=== PATIENT | male | born 1990 | race Two or more races ===

== ENCOUNTER 2019-01-17 19:23 | Emergency (ER) | payer SELFPAY ==
[2019-01-17 20:10] VITALS: BP 136/86
== END 2019-01-17 20:59 ==
LOC: JD.ED 19:23
DX: Z53.21 Procedure and treatment not carried out due to patient leaving prior to being seen by health care provider (principal)

== ENCOUNTER 2019-09-11 12:10 | Emergency (ER) | payer SELFPAY ==
--- NOTE | 2019-09-11 13:31 | EDM.PDOC ---
ED HPI GENERAL MEDICAL PROBLEM - General Chief Complaint: Chest Pain Stated Complaint: CHEST PAIN Time Seen by Provider: 09/11/19 13:02 Source of Information: Reports: Patient, RN Notes Reviewed History Limitations: Reports: No Limitations - History of Present Illness INITIAL COMMENTS - FREE TEXT/NARRATIVE: Patient is a 28-year-old male who presents to the ED for the evaluation of chest pressure and shortness of breath. Patient states that this morning around 11 AM, he was walking downstairs, when he suddenly began to feel lightheaded and dizzy. Patient states that he did have 2 cups of coffee for breakfast, but did not eat any meal for breakfast. Patient states that this was for a short period of time, he states now that he just feels some chest pressure, and feels generalized nervousness. The patient notes that he did have contact with his [id number] 14 to 16 days ago, and he was positive for coronavirus, the patient is not complaining of any other respiratory issues, he has no dry cough. Patient is denying any fevers or chills, no nausea/vomiting/ diarrhea. Patient denies any early family cardiac history, and he denies any cardiac or lung history that he may have. He does not have a regular care provider. Patient states that he drinks some alcohol socially but does not take any on a daily basis. - Related Data Allergies Allergy/AdvReac Type Severity Reaction Status Date / Time No Known Allergies Allergy Verified 01/17/19 20:10 Home Meds: Home Meds . [No Known Home Meds] 01/17/19 [History] Past Medical History Respiratory History: Reports: Asthma Other Respiratory History: does not use inhalers Social & Family History - Family History Family Medical History: Noncontributory - Tobacco Use Smoking Status *Q: Never Smoker - Caffeine Use Caffeine Use: Reports: Coffee - Alcohol Use Alcohol Use History: Yes Alcohol Use Frequency: Socially - Recreational Drug Use Recreational Drug Use: No ED ROS GENERAL - Review of Systems Review Of Systems: See Below Constitutional: Denies: Fever, Chills Respiratory: Reports: Shortness of Breath (1 episode earlier today, not present now). Denies: Cough Cardiovascular: Reports: Chest Pain (mid chest discomfort) GI/Abdominal: Denies: Abdominal Pain, Constipation, Diarrhea, Nausea, Vomiting Neurological: Denies: Headache Psychiatric: Reports: Anxiety ED EXAM, GENERAL - Physical Exam Exam: See Below Exam Limited By: No Limitations General Appearance: Alert, WD/WN, No Apparent Distress Eye Exam: Bilateral Eye: EOMI, Normal Inspection, PERRL Ears: Normal External Exam Throat/Mouth: Normal Inspection, Normal Lips, Normal Teeth, Normal Gums, Normal Oropharynx, Normal Voice, No Airway Compromise Head: Atraumatic, Normocephalic Neck: Normal Inspection Respiratory/Chest: No Respiratory Distress, Lungs Clear, Normal Breath Sounds, No Accessory Muscle Use, Chest Non-Tender Cardiovascular: Normal Peripheral Pulses, Regular Rate, Rhythm, No Murmur GI/Abdominal: Normal Bowel Sounds, Soft, Non-Tender, No Distention, No Mass Extremities: Normal Inspection, Normal Capillary Refill Neurological: Alert, Oriented, Normal Cognition, No Motor/Sensory Deficits Psychiatric: Normal Affect, Normal Mood, Anxious (slightly) Skin Exam: Warm, Dry, Intact, Normal Color, No Rash Course - Vital Signs Last Recorded V/S: Last Vital Signs Temp 96.8 F L 09/11/19 12:34 Pulse 82 09/11/19 12:34 Resp 20 09/11/19 12:34 BP 137/82 09/11/19 12:34 Pulse Ox 96 09/11/19 12:34 - Orders/Labs/Meds Orders: Active Orders 24 hr Category Date Time Status Chest 2V [CR] Stat Exams 09/11/19 13:25 Ordered - Re-Assessments/Exams Free Text/Narrative Re-Assessment/Exam: 09/11/19 13:30 The patient presents to the ED for the evaluation of his chest pressure and sudden onset shortness of breath earlier this morning. I do believe most of his symptoms were due to a possible hypoglycemic/too much caffeine intake on an empty stomach. Patient was worried about being infected with coronavirus, but with him having been quarantined, and it being 16 days since his last contact with a known positive. I do not believe this should be clinically considered at this time. Patient's vital signs are well within normal limits. I did offer to do an EKG, chest x-ray, and troponin test, the patient took me up only on the chest x-ray and denied having the EKG or troponin done today. I did inform him of the risks, and he states he would just like to know about the chest x-ray at this time. 09/11/19 14:45 We are having issues with PACs, or radiology equipment in the ER. I did go over to the department and take a look at the x-rays, I do not see anything that would be considered a infiltrate or consolidation. Patient did have some mild haziness to the right midlung, but I do not believe this to be an infectious type finding. Official radiology read is pending. However I am not going to make the patient wait any longer for our radiology system to start working, I will call him if there are any worrisome results. Departure - Departure Time of Disposition: 14:46 Disposition: Home, Self-Care 01 Condition: Good Clinical Impression: Anxiety about health Instructions: Nonspecific Chest Pain, Adult, [id number] Referrals: PCP,None [Primary Care Provider] - Forms: ED Department Discharge Additional Instructions: You were evaluated in the ER today regarding your chest discomfort and feelings of being lightheaded. Although it is likely that your symptoms this morning stemmed from low blood sugar, too much caffeine in nature the etiology is still undetermined at this time. It is likely that you have a mild amount of anxiety as well, your work-up at today's visit, is not worrisome for coronavirus at this time. Recommend you monitor your symptoms, and seek care for reevaluation if you should have worsening symptoms like increased shortness of breath, fever, dry hacking cough. Your chest x-ray was done today, and does appear to be within normal limits by my read, however official radiology read is pending, and you will be called and made notified of any other worrisome results. We are having issues with our technology at this time, and cannot load the results from our radiologist. But again your chest x-ray does not appear to be overly worrisome. Please return to the ED at any time if symptoms change or worsen. Sepsis Event Note - Evaluation Sepsis Screening Result: No Definite Risk - Focused Exam Vital Signs: Vital Signs Temp Pulse Resp BP Pulse Ox 09/11/19 12:34 96.8 F L 82 20 137/82 96 Date Exam was Performed: 09/11/19 Time Exam was Performed: 14:45 - My Orders Last 24 Hours: My Active Orders 09/11/19 13:25 Chest 2V [CR] Stat - Assessment/Plan Last 24 Hours: My Active Orders 09/11/19 13:25 Chest 2V [CR] Stat
[2019-09-11 15:19] VITALS: BP 118/74; PULSE 90
--- NOTE | 2019-09-12 08:31 | CR ---
Chest: 2 views of the chest were obtained. Comparison: No previous chest imaging. Thick density is noted within the right lung base most likely representing atelectasis. Lungs otherwise are clear. Heart size and mediastinum are within normal limits. Bony structures appear within normal limits. Impression: 1. Density within the right lung base most likely representing thick area of atelectasis. 2. Nothing acute is otherwise seen. Diagnostic code #2 This report was dictated in MDT
== END 2019-09-11 15:09 | disposition home or self-care (01) ==
LOC: JD.ED 12:10
DX: F41.9 Anxiety disorder, unspecified (principal); J45.909 Unspecified asthma, uncomplicated
CPT/HCPCS: 71046; 71046-26; 99283; 99284-25